=== PATIENT | female | born 1950 ===

== ENCOUNTER 2017-04-14 19:32 | Day surgery (SDC) | payer MEDICARE ==
[~2017-04-14 19:32] MED LIST: LACTATED RINGER'S 1000 ML INJ 1,000 ML IV ONE; ONDANSETRON HCL 4 MG/2 ML VIAL IV PUSH ONE; PROPOFOL 200 MG/20 ML AMP IV ONE
[2017-04-14] MEDS ORDERED: BALANCED SALT SOLN OPHT IRRIG 15 ML BTL ONE (20:24)
[2017-04-14] MEDS: ATROPINE SULFATE 1% OPHT SOLN 5 ML BTL RIGHT EYE SCH ×4 (20:46→21:32)
[2017-04-14] MEDS: MOXIFLOXACIN 0.5% OPHT SOLN 3 ML BTL RIGHT EYE PRN ×4 (20:46→21:32)
[2017-04-14] MEDS: PHENYLEPHRINE HCL 2.5% OPTH SOLN 2 ML BTL RIGHT EYE SCH ×4 (20:46→21:32)
[2017-04-14] MEDS: prednisoLONE ACETATE 1% OPHT SUSP 5 ML BTL RIGHT EYE PRN ×4 (20:46→21:32)
[2017-04-14] MEDS: TROPICAMIDE 1% OPHT SOLN 15 ML BTL RIGHT EYE SCH ×4 (20:46→21:32)
[2017-04-14] MEDS ORDERED: MIDAZOLAM HCL 2 MG/2 ML VIAL ONE (20:49)
[2017-04-14] MEDS ORDERED: LIPI10TA PO (21:30)
[2017-04-14] MEDS ORDERED: MAXZTAB PO (21:30)
[2017-04-14] MEDS ORDERED: LEVO.05 PO (21:30)
[2017-04-14] MEDS ORDERED: ceFAZolin INJ 1,000 MG VIAL ONE (23:32)
[2017-04-14] MEDS ORDERED: DEXAMETHASONE SOD PHOS 4 MG/ML VIAL ONE (23:32)
[2017-04-14] MEDS ORDERED: STERILE WATER FOR INJ 20 ML VIAL ONE (23:32)
[2017-04-14] MEDS ORDERED: TOBRAMYCIN/DEXAMETHASONE OPTH OINT 3.5 GM TUBE ONE (23:37)
[2017-04-15] MEDS ORDERED: MORPHINE SULFATE 4 MG/ML INJ ONE (00:10)
[2017-04-15] MEDS ORDERED: oxyCODONE/ACETAMINOPHEN 5 MG/325 MG TAB PO PRN (00:15)
[2017-04-15] MEDS ORDERED: ACETAMINOPHEN 500 MG CPLT PO PRN (00:15)
[2017-04-15 00:50] VITALS: BP 137/65; PULSE 64; RESP 12; TEMP 97.7; O2SAT 99
[2017-04-15] MEDS ORDERED: MOXIFLOXACIN 0.5% OPHT SOLN 3 ML BTL RIGHT EYE SCH (09:00)
[2017-04-15] MEDS ORDERED: prednisoLONE ACETATE 1% OPHT SUSP 5 ML BTL RIGHT EYE SCH (09:00)
[2017-04-15] MEDS ORDERED: CYCLOPENTOLATE HCL 1% OPHT SOLN 2 ML BTL RIGHT EYE SCH (09:00)
--- NOTE | 2017-04-17 22:01 | MP ---
cc: LARRY TRUONG MD DATE OF SURGERY 04/15/2017 POSTOPERATIVE DIAGNOSIS Retinal detachment, multiple retinal tears, right eye. PROCEDURE Pars plana vitrectomy, retinal detachment repair, endolaser, air-fluid exchange, insertion of 18% SF6 gas right eye. COMPLICATIONS None BLOOD LOSS Less than [address] Zach amanda. 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 Discussed the possible treatment options and the patient elected for surgical correction to stabilize her retina. PROCEDURE NOTE Informed consent was obtained, the patient brought to operating room. General anesthesia was established. The right eye was prepped and draped in sterile fashion with Betadine in the conjunctival fornix. A deep port pars plana vitrectomy was established with self-retaining infusion cannula. Core vitreous was removed and vitreous traction of the peripheral retina was relieved. Traction to multiple retinal tears were also relieved. PFO was instilled and subretinal fluid removed. Endolaser was applied surrounding retinal defects 360 degrees. Air-fluid exchange was carried out and 18% SF6 gas was instilled. Scleral examination revealed no untreated retinal holes, tears or detachments. Trocars were removed and sclerotomies closed. Subconjunctival injection with Ancef and dexamethasone were given. The eye was packed with Tobramycin ointment. The patient brought to recovery room in stable condition and will continue to follow up with [facility] for her postoperative care. Larry Truong MD KW/KK /3:08 PM /9:56 PM
== END 2017-04-15 00:55 | disposition home or self-care (01) ==
LOC: HSDC 19:32
PROVIDERS: ATTEND Ophthalmology
DX: H33.021 Retinal detachment with multiple breaks, right eye (principal); I10 Essential (primary) hypertension; E78.00 Pure hypercholesterolemia, unspecified
CPT/HCPCS: 00145; 67043; 67108; J0690; J1100; J2250; J2270; J2405; J3010; J7120